=== PATIENT | female | born 2000 ===

== ENCOUNTER 2021-03-13 23:54 | Emergency (ER) | payer OTHER ==
[2021-03-14 00:36] LABS: Urine Blood Negative (Negative); Urine Glucose Negative (Negative); Urine Protein Negative (Negative); Urine Specific Gravity 1.025 (1.005-1.030)
[2021-03-14] MEDS ORDERED: METOCLOPRAMIDE 10 MG/2mL INJ ONE (01:13)
[2021-03-14] MEDS ORDERED: DIPHENHYDRAMINE 50 MG/ML VIAL ONE (01:14)
[2021-03-14] MEDS ORDERED: NA CHLORIDE 0.9% 1,000 ML ONE (01:14)
--- NOTE | 2021-03-14 01:50 | EDPHYS ---
Physician Documentation [facility] Name: Ana Luna Age: 20 yrs Sex: Female : 2000 Arrival Date: 03/14/2021 Time: 00:00 Bed 6 Private MD: ED Physician Boby Sequeira HPI: 03/14 01:20 This 20 yrs old Female presents to ER via Ambulatory with complaints of Headache > jr8 24hrs Old, Nausea/Vomiting. 01:20 Severity of symptoms: At its worst the pain was moderate, in the emergency department jr8 the pain is unchanged. Headache History: Denies prior headaches. The symptoms are alleviated by nothing. the symptoms are aggravated by nothing. The patient has not experienced similar symptoms in the past. The patient has not recently seen a physician. This is a 20-year-old female patient that presented to the emergency room with complaints of headache and nausea for the past couple of days. Patient has had no relief with [id number] medicine. Denies any other symptoms at this time.. 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 - Social history:: Smoking status: Patient denies any tobacco usage or history of. ROS: 01:20 Eyes: Negative for injury, pain, redness, and discharge, ENT: Negative for injury, jr8 pain, and discharge, Neck: Negative for injury, pain, and swelling, Cardiovascular: Negative for chest pain, palpitations, and edema, Respiratory: Negative for shortness of breath, cough, wheezing, and pleuritic chest pain, Back: Negative for injury and pain, MS/Extremity: Negative for injury and deformity, Skin: Negative for injury, rash, and discoloration. 01:20 Abdomen/GI: Positive for nausea and vomiting, Negative for abdominal pain, diarrhea. 01:20 Neuro: Positive for headache. Exam: 01:20 Constitutional: This is a well developed, well nourished patient who is awake, alert, jr8 and in no acute distress. Eyes: Pupils equal round and reactive to light, extra-ocular motions intact. Lids and lashes normal. Conjunctiva and sclera are non-icteric and not injected. Cornea within normal limits. Periorbital areas with no swelling, redness, or edema. ENT: Nares patent. No nasal discharge, no septal abnormalities noted. Tympanic membranes are normal and external auditory canals are clear. Oropharynx with no redness, swelling, or masses, exudates, or evidence of obstruction, uvula midline. Mucous membranes moist. Neck: Trachea midline, no thyromegaly or masses palpated, and no cervical lymphadenopathy. Supple, full range of motion without nuchal rigidity, or vertebral point tenderness. No Meningismus. Respiratory: Lungs have equal breath sounds bilaterally, clear to auscultation and percussion. No rales, rhonchi or wheezes noted. No increased work of breathing, no retractions or nasal flaring. Abdomen/GI: Soft, non-tender, with normal bowel sounds. No distension or tympany. No guarding or rebound. No evidence of tenderness throughout. Back: No spinal tenderness. No costovertebral tenderness. Full range of motion. Skin: Warm, dry with normal turgor. Normal color with no rashes, no lesions, and no evidence of cellulitis. MS/ Extremity: Pulses equal, no cyanosis. Neurovascular intact. Full, normal range of motion. Neuro: Awake and alert, GCS 15, oriented to person, place, time, and situation. Cranial nerves II-XII grossly intact. Motor strength 5/5 in all extremities. Sensory grossly intact. Cerebellar exam normal. Normal gait. 01:20 Cardiovascular: Rate: tachycardic, Rhythm: regular, Pulses: Pulses are 2+ in right radial artery and left radial artery. Heart sounds: normal, normal S1and S2, no S3 or S4, no murmur, no rub, no gallop, Edema: is not appreciated. Vital Signs: 00:39 BP 151 / 103; Pulse 121; Resp 20; Temp 99.5; Pulse Ox 100% on R/A; Weight 69.85 kg; tw5 Height 5 ft. 8 in. (172.72 cm); Pain 10/10; 00:46 BP 151 / 89; Pulse 119; Resp 20; Pulse Ox 98% on R/A; tw5 01:21 BP 142 / 100; Pulse 113; Resp 20; Pulse Ox 98% on R/A; tw5 00:39 Body Mass Index 23.42 (69.85 kg, 172.72 cm) tw5 MDM: 00:24 Patient medically screened. jr8 01:49 Data reviewed: vital signs, nurses notes, and as a result, I will discharge patient. jr8 Data interpreted: Pulse oximetry: on room air is 98 %. Interpretation: normal. Counseling: I had a detailed discussion with the patient and/or guardian regarding: the historical points, exam findings, and any diagnostic results supporting the discharge/admit diagnosis, the need for outpatient follow up, a family practitioner, to return to the emergency department if symptoms worsen or persist or if there are any questions or concerns that arise at home. Response to treatment: the patient's symptoms have mildly improved after treatment. 01:49 ED course: And has had mild improvement. Heart rate has started to decrease since jr8 fluids have been administered. Patient needs to leave because she has to get to work by 3 AM. I advised her that I could give her a work note that we can continue to monitor her but she insists on leaving. We will discharge her at this time but knows she can come back at any point time for further evaluation.. 03/14 00:36 Order name: Urine Dipstick-Ancillary; Complete Time: 00:40 EDMS 03/14 00:37 Order name: Urine Dipstick-Ancillary EDMS 03/14 00:40 Order name: IV; Complete Time: 00:45 jr8 Administered Medications: 01:18 Drug: Reglan (metoCLOPramide) 10 mg Route: IVP; Site: right antecubital; tw 01:59 Follow up: Response: No adverse reaction tw 01:18 Drug: NS 0.9% 1000 ml Route: IV; Rate: 1000 ml; Site: right antecubital; :59 Follow up: IV Status: Order to discontinue infusion tw 01:20 Not Given (Patient Refused; " I was forced to take this as a kid, I dont want to take tw5 that"): Benadryl (diphenhydrAMINE) 25 mg IVP once Disposition: 03:49 Co-signature as Attending Physician, Boby Sequeira MD I agree with the assessment and kdr plan of care. Disposition Summary: 03/14/21 01:50 Discharge Ordered Location: Home jr8 Problem: new jr8 Symptoms: have improved jr8 Condition: Stable jr8 Diagnosis - Migraine without aura, intractable jr8 Followup: jr8 - With: Private Physician - When: 2 - 3 days - Reason: Recheck today's complaints, Continuance of care, Re-evaluation by your physician Discharge Instructions: - Discharge Summary Sheet jr8 - Migraine Headache jr8 Forms: - Medication Reconciliation Form jr8 - Thank You Letter jr8 - Antibiotic Education jr8 - Prescription Opioid Use jr8 Signatures: Dispatcher [employer] EDMS Boby Sequeira MD MD [facility] Dylon Mancera PA PA jr8 Gloria Lim tw
--- NOTE | 2021-03-14 01:50 | ER ---
Nurse's Notes [facility] Name: Ana Luna Age: 20 yrs Sex: Female : 2000 Arrival Date: 03/14/2021 Time: 00:00 Bed 6 Private MD: Diagnosis: Migraine without aura, intractable Presentation: 03/14 00:36 Chief complaint: Patient states: Headache on the left side of the head. tw 00:36 Method Of Arrival: Ambulatory tw5 00:39 Coronavirus screen: Vaccine status: Patient reports receiving the 2nd dose of the covid tw5 vaccine. Date April 2020. Ebola Screen: Patient negative for fever greater than or equal to 101.5 degrees Fahrenheit, and additional compatible Ebola Virus Disease symptoms Patient denies exposure to infectious person. Patient denies travel to an Ebola-affected area in the 21 days before illness onset. Initial Sepsis Screen: Does the patient meet any 2 criteria? HR > 90 bpm. Does the patient have a suspected source of infection? No. Patient's initial sepsis screen is negative. Risk Assessment: Do you want to hurt yourself or someone else? Patient reports no desire to harm self or others. Onset of symptoms was March 08, 2021. 00:39 Acuity: REID 3 tw5 Triage Assessment: 00:45 Headache History: Denies prior headaches. General: Appears in no apparent distress. tw5 obese, Behavior is calm, cooperative, appropriate for age. Pain: Pain currently is 10 out of 10 on a pain scale. Pain began 6 days ago. Pain: Also complains of nausea, inability to concentrate. Neuro: Level of Consciousness is awake, alert, obeys commands, Oriented to person, place, time, situation. 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 - Social history:: Smoking status: Patient denies any tobacco usage or history of. Screenin:46 Abuse screen: Denies threats or abuse. Denies injuries from another. Nutritional tw5 screening: No deficits noted. Tuberculosis screening: No symptoms or risk factors identified. Never had TB. Fall Risk No fall in past 12 months (0 pts). Assessment: 00:37 : Urine is clear. tw5 00:46 General: Appears in no apparent distress. Behavior is calm, cooperative, appropriate tw5 for age. Pain: Pain currently is 10 out of 10 on a pain scale. Cardiovascular: Rhythm is sinus tachycardia. Respiratory: Reports Vital Signs: 00:39 BP 151 / 103; Pulse 121; Resp 20; Temp 99.5; Pulse Ox 100% on R/A; Weight 69.85 kg; tw5 Height 5 ft. 8 in. (172.72 cm); Pain 10/10; 00:46 BP 151 / 89; Pulse 119; Resp 20; Pulse Ox 98% on R/A; tw5 01:21 BP 142 / 100; Pulse 113; Resp 20; Pulse Ox 98% on R/A; tw5 00:39 Body Mass Index 23.42 (69.85 kg, 172.72 cm) tw5 ED Course: 00:00 Patient arrived in ED. wm 00:23 Dylon Mancera PA is PHCP. jr8 00:23 Boby Sequeira MD is Attending Physician. jr8 00:24 Karrie Miller is Primary Nurse. df1 00:37 Patient has correct armband on for positive identification. Placed in gown. Bed in low tw5 position. Call light in reach. Side rails up X 1. monitoring engineer on. Pulse ox on. NIBP on. Door closed. Noise minimized. Moved to private room. Warm blanket given. Verbal reassurance given. 00:37 Initial lab(s) drawn, by me, sent to lab. Urine collected: clean catch specimen, EKG tw5 done, by ED staff, reviewed by Dylon COLON. Inserted saline lock: 18 gauge in right antecubital area, using aseptic technique. Blood collected. 00:38 Urine Dipstick-Ancillary Sent. df1 00:42 Triage completed. tw5 00:45 Arm band placed on right wrist. EKG completed in triage. Results shown to MD. tw5 00:46 No apparent distress. tw5 01:59 No provider procedures requiring assistance completed. IV discontinued, intact, tw5 bleeding controlled, No redness/swelling at site. Pressure dressing applied. Administered Medications: 01:18 Drug: Reglan (metoCLOPramide) 10 mg Route: IVP; Site: right antecubital; :59 Follow up: Response: No adverse reaction :18 Drug: NS 0.9% 1000 ml Route: IV; Rate: 1000 ml; Site: right antecubital; :59 Follow up: IV Status: Order to discontinue infusion 01:20 Not Given (Patient Refused; " I was forced to take this as a kid, I dont want to take tw5 that"): Benadryl (diphenhydrAMINE) 25 mg IVP once Outcome: 01:50 Discharge ordered by MD. escalante :59 Discharged to home :59 Condition: good :59 Discharge instructions given to patient, Instructed on discharge instructions, follow up and referral plans. 02:00 Patient left the ED. 5 Signatures: Dylon Mancera PA PA jr8 Emilie Rios Dawn df1 Gloria Lim tw5
[2021-03-14 02:21] VITALS: TEMP 99.5
[2021-03-14 02:22] VITALS: O2SAT 98
[2021-03-14 02:24] VITALS: BP 142/100
== END 2021-03-14 02:00 | disposition home or self-care (01) ==
LOC: ER 23:54
DX: G43.019 Migraine without aura, intractable, without status migrainosus (principal)
CPT/HCPCS: 96361; 93005; 81003; 96374; 99284; J2765; J1200; J7030

== ENCOUNTER 2022-04-07 18:15 | Emergency (ER) | payer OTHER ==
--- OUTSIDE RECORDS SUMMARY | 2022-04-07 18:18 | XMS REPORT | Continuity of Care Document ---
:2000 Author Organization [facility] t Address [address] [place] [address] Care Team Providers Name Role Phone Sary Campo MD Primary Care Physician [phone] SARY CAMPO Attending Clinician Unavailable Sary Campo MD Attending Clinician Doctor Unassigned, [place] Attending Clinician Unavailable Payers Payer Name Policy Type Policy Number Effective Date Expiration Date S ource Problems Condition Condition Condition Status Onset Resolution Last Treating Co mments Source Name Details Category Date Date Treatment Clinician Date Gender Gender Disease Active 2021-04 Univers incongruen incongruen 2-06 it y of ce ce 00:00: [place] 00 Medical Branch Encounter Encounter Disease Active 2021-04 Uni vers for for 2-06 [place] 00 Med[place] rachael use of use of Branch high-risk high-risk medication medication BMI BMI Disease Active 2021-04 Univers 40.0-44.9, 40.0-44.9, 2-06 it y of adult adult 00:00: [place] 00 Medical Branch Primary Primary Disease Active 2021-04 Univers hypertensi hypertensi 2-06 it y of on on 00:00: [place] 00 Medical Branch Anxiety Anxiety Disease Active 2021-04 Univers 2-06 ity of 00:00: [place] 00 Medical Branch 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 (finding) Branch Sex Assigned At [birth year] Universit y of 00:00:00 00:00:00 [place] [facility] Smoking Status Start Date Stop Date Source [facility] Medications Ordered Filled Start Stop Current Ordering Indication Dosage Frequency Signature Comments Components Source Medication Medication Date Date Medication? Clinician (SIG) Name Name estradioL 2 2021-04 Yes [id number] 2mg Take 1 Univers mg tablet 2-15 tablet by ity o f 00:00: mouth in [place] 00 the Medical morning. Branch estradioL 2021-04 Yes 2{patch Apply 2 Un joseline 0.075 mg/24 2-14 } Patches to it y of hr patch 00:00: skin [place] 00 weekly. Medical Branch estradioL 2021-04- 2{patch Apply 2 U nivers 0.075 mg/24 2-14 12-15 } Patches to i ty of hr patch 00:00: 00:00 skin [place] 00 :00 weekly. Medical Branch estradioL 2021-04 Yes [id number] 2{patch Apply 2 Univers 0.075 mg/24 2-08 } Patches to it y of hr patch 00:00: skin 2 [place] (two) Medical times per Branch week. estradioL 2021-04 Yes [id number] 2{patch Apply 2 Univers 0.075 mg/24 2-08 } Patches to it y of hr patch 00:00: skin 2 [place] 00 (two) Medical times per Branch week. estradioL 2021-04 Yes [id number] 2{patch Apply 2 Univers 0.075 mg/24 2-08 } Patches to it y of hr patch 00:00: skin 2 [place] 00 (two) Medical times per Branch week. estradioL 2021-04 Yes [id number] 2{patch Apply 2 Univers 0.075 mg/24 2-08 } Patches to it y of hr patch 00:00: skin 2 [place] 00 (two) Medical times per Branch week. estradioL 2021- Yes [id number] 2{patch Apply 2 Univers 0.075 mg/24 2-08 } Patches to it y of hr patch 00:00: skin 2 [place] 00 (two) Medical times per Branch week. estradioL 2021- Yes [id number] 2{patch Apply 2 Univers 0.075 mg/24 2-08 } Patches to it y of hr patch 00:00: skin 2 [place] 00 (two) Medical times per Branch week. estradioL 2021- Yes [id number] 2{patch Apply 2 Univers 0.075 mg/24 2-08 } Patches to it y of hr patch 00:00: skin 2 [place] 00 (two) Medical times per Branch week. estradioL 2021- Yes [id number] 2{patch Apply 2 Univers 0.075 mg/24 2-08 } Patches to it y of hr patch 00:00: skin 2 [place] 00 (two) Medical times per Branch week. estradioL 2021- Yes [id number] 2{patch Apply 2 Univers 0.075 mg/24 2-08 } Patches to it y of hr patch 00:00: skin 2 [place] 00 (two) Medical times per Branch week. estradioL 2021-2021- No [id number] 2{patch Apply 2 Univers 0.075 mg/24 2-08 12-14 } Patches to i ty of hr patch 00:00: 00:00 skin 2 [place] 00 :00 (two) Medical times per Branch week. spironolact 2021-2021- No 100mg Take 100 Univers one 100 mg 05-26-06 mg by ity of tablet 08:17: 00:00 mouth in [place] 27 :00 the Medical morning. Branch hydrOXYzine 2021-2021- No 10mg Take 10 mg Univers 10 mg 05-26- by mouth ity of tablet 08:17: 00:00 in the [place] 27 :00 morning Medical and 10 mg Branch in the evening. spironolact 2021-2021- No 100mg Take 100 Univers one 100 mg 05-26-06 mg by ity of tablet 08:17: 00:00 mouth in [place] 27 :00 the Medical morning. Branch hydrOXYzine 2021-2021- No 10mg Take 10 mg Univers 10 mg 05-26- by mouth ity of tablet 08:17: 00:00 in the [place] 27 :00 morning Medical and 10 mg Branch in the evening. spironolact 2021-2021- No 100mg Take 100 Univers one 100 mg 2-06 mg by ity of tablet 08:17: 00:00 mouth in [place] 27 :00 the Medical morning. Branch hydrOXYzine 2021-04- No 10mg Take 10 mg Univers 10 mg 05-26-06 by mouth ity of tablet 08:17: 00:00 in the [place] 27 :00 morning Medical and 10 mg Branch in the evening. spironolact 2021-04- No 100mg Take 100 Univers one 100 mg 05-26-06 mg by ity of tablet 08:17: 00:00 mouth in [place] 27 :00 the Medical morning. Branch hydrOXYzine 2021-04- No 10mg Take 10 mg Univers 10 mg 05-26-06 by mouth ity of tablet 08:17: 00:00 in the [place] 27 :00 morning Medical and 10 mg Branch in the evening. estradioL 2021-04- No 2mg Take 2 mg Un joseline (ESTRACE) 2 05-26- by mouth ity of mg tablet 08:17: 00:00 in the [place] 24 :00 morning Medical and 2 mg Branch in the evening. estradioL 2021-04- No 2mg Take 2 mg Un joseline (ESTRACE) 2 05-26- by mouth ity of mg tablet 08:17: 00:00 in the [place] 24 :00 morning Medical and 2 mg Branch in the evening. estradioL 2021-04- No 2mg Take 2 mg Un joseline (ESTRACE) 2 05-26- by mouth ity of mg tablet 08:17: 00:00 in the [place] 24 :00 morning Medical and 2 mg Branch in the evening. estradioL 2021-2021- No 2mg Take 2 mg Un joseline (ESTRACE) 2 05-26- by mouth ity of mg tablet 08:17: 00:00 in the [place] 24 :00 morning Medical and 2 mg Branch in the evening. PROGESTERON 2021-04- No 200mg 200 mg Un joseline E MISC 05-26-06 daily. ity of 08:09: 00:00 [place] 33 :00 Medical Branch PROGESTERON 2021-04- No 200mg 200 mg Un joseline E MISC 2-06 12-06 daily. ity of 08:09: 00:00 [place] 33 :00 Medical Branch PROGESTERON 2021-2021- No 200mg 200 mg Un joseline E MISC 2-06 12-06 daily. ity of 08:09: 00:00 [place] 33 :00 Medical Branch PROGESTERON 2021-04- No 200mg 200 mg Un joseline E MISC 2-06 12-06 daily. ity of 08:09: 00:00 [place] 33 :00 Medical Branch hydrOXYzine 2021-04 Yes [id number] 10mg Take 1 Univers 10 mg 2-06 tablet by ity of tablet 00:00: mouth at [place] 00 bedtime. Medical Branch progesteron 2021-04 Yes [id number] 100mg Take 1 Univers e 100 mg 2-06 capsule by ity o f capsule 00:00: mouth in [place] 00 the Medical morning. Branch spironolact 2021-04 Yes [id number] 100mg Take 1 Univers one 100 mg 2-06 tablet by ity of tablet 00:00: mouth in [place] 00 the Medical morning. Branch hydrOXYzine 2021-04 Yes [id number] 10mg Take 1 Univers 10 mg 2-06 tablet by ity of tablet 00:00: mouth at [place] [address] bedtime. Medical Branch progesteron 2021-04 Yes [id number] 100mg Take 1 Univers e 100 mg 2-06 capsule by ity o f capsule 00:00: mouth in [place] 00 the Medical morning. Branch spironolact 2021- Yes [id number] 100mg Take 1 Univers one 100 mg 2-06 tablet by ity of tablet 00:00: mouth in [place] 00 the Medical morning. Branch hydrOXYzine 2021- Yes [id number] 10mg Take 1 Univers 10 mg 2-06 tablet by ity of tablet 00:00: mouth at [place] 00 bedtime. Medical Branch progesteron 2021-04 Yes [id number] 100mg Take 1 Univers e 100 mg 2-06 capsule by ity o f capsule 00:00: mouth in [place] 00 the Medical morning. Branch spironolact 2021- Yes [id number] 100mg Take 1 Univers one 100 mg 2-06 tablet by ity of tablet 00:00: mouth in [place] 00 the Medical morning. Branch hydrOXYzine 2021- Yes [id number] 10mg Take 1 Univers 10 mg 2-06 tablet by ity of tablet 00:00: mouth at [place] [address] bedtime. Medical Branch progesteron 2021- Yes [id number] 100mg Take 1 Univers e 100 mg 2-06 capsule by ity o f capsule 00:00: mouth in [place] 00 the Medical morning. Branch spironolact 2021- Yes [id number] 100mg Take 1 Univers one 100 mg 2-06 tablet by ity of tablet 00:00: mouth in [place] 00 the Medical morning. Branch hydrOXYzine 2021- Yes [id number] 10mg Take 1 Univers 10 mg 2-06 tablet by ity of tablet 00:00: mouth at [place] [address] bedtime. Medical Branch progesteron 2021- Yes [id number] 100mg Take 1 Univers e 100 mg 2-06 capsule by ity o f capsule 00:00: mouth in [place] 00 the Medical morning. Branch spironolact 2021- Yes [id number] 100mg Take 1 Univers one 100 mg 2-06 tablet by ity of tablet 00:00: mouth in [place] 00 the Medical morning. Branch hydrOXYzine 2021- Yes [id number] 10mg Take 1 Univers 10 mg 2-06 tablet by ity of tablet 00:00: mouth at [place] [address] bedtime. Medical Branch progesteron 2021- Yes [id number] 100mg Take 1 Univers e 100 mg 2-06 capsule by ity o f capsule 00:00: mouth in [place] 00 the Medical morning. Branch spironolact 2021- Yes [id number] 100mg Take 1 Univers one 100 mg 2-06 tablet by ity of tablet 00:00: mouth in [place] 00 the Medical morning. Branch hydrOXYzine 2021- Yes [id number] 10mg Take 1 Univers 10 mg 2-06 tablet by ity of tablet 00:00: mouth at [place] 00 bedtime. Medical Branch progesteron 2021- Yes [id number] 100mg Take 1 Univers e 100 mg 2-06 capsule by ity o f capsule 00:00: mouth in [place] 00 the Medical morning. Branch spironolact 2021- Yes [id number] 100mg Take 1 Univers one 100 mg 2-06 tablet by ity of tablet 00:00: mouth in [place] 00 the Medical morning. Branch hydrOXYzine 2021- Yes [id number] 10mg Take 1 Univers 10 mg 2-06 tablet by ity of tablet 00:00: mouth at [place] 00 bedtime. Medical Branch progesteron 2021- Yes [id number] 100mg Take 1 Univers e 100 mg 2-06 capsule by ity o f capsule 00:00: mouth in [place] 00 the Medical morning. Branch spironolact 2021-04 Yes [id number] 100mg Take 1 Univers one 100 mg 2-06 tablet by ity of tablet 00:00: mouth in [place] 00 the Medical morning. Branch hydrOXYzine 2021- Yes [id number] 10mg Take 1 Univers 10 mg 2-06 tablet by ity of tablet 00:00: mouth at [place] 00 bedtime. Medical Branch progesteron 2021- Yes [id number] 100mg Take 1 Univers e 100 mg 2-06 capsule by ity o f capsule 00:00: mouth in [place] 00 the Medical morning. Branch spironolact 2021- Yes [id number] 100mg Take 1 Univers one 100 mg 2-06 tablet by ity of tablet 00:00: mouth in [place] 00 the Medical morning. Branch hydrOXYzine 2021- Yes [id number] 10mg Take 1 Univers 10 mg 2-06 tablet by ity of tablet 00:00: mouth at [place] [address] bedtime. Medical Branch progesteron 2021- Yes [id number] 100mg Take 1 Univers e 100 mg 2-06 capsule by ity o f capsule 00:00: mouth in [place] 00 the Medical morning. Branch spironolact 2021- Yes [id number] 100mg Take 1 Univers one 100 mg 2-06 tablet by ity of tablet 00:00: mouth in [place] 00 the Medical morning. Branch hydrOXYzine 2021- Yes [id number] 10mg Take 1 Univers 10 mg 2-06 tablet by ity of tablet 00:00: mouth at [place] 00 bedtime. Medical Branch progesteron 2021- Yes [id number] 100mg Take 1 Univers e 100 mg 2-06 capsule by ity o f capsule 00:00: mouth in [place] 00 the Medical morning. Branch spironolact 2021- Yes [id number] 100mg Take 1 Univers one 100 mg 2-06 tablet by ity of tablet 00:00: mouth in [place] 00 the Medical morning. Branch Immunizations Ordered Filled Immunization Date Status Comments [facility] Immunization Name Name Influenza Virus 2022-03-25 Completed Universit y of Vaccine Quad IM, 00:00:00 [facility] dical Preserv and ABX Branch Free 6 MO-64 YRS HPV9 2022-03-25 Completed University of 00:00:00 [facility] SARS-COV-2 COVID-19 2022-03-25 Completed Unive rsity of VACCINE 12 YRS+, 00:00:00 [facility] dical BIVALENT 0.5ML, IM, Branc h (MODERNA BOOSTER) Influenza Virus 2022-03-25 Completed Universit y of Vaccine Quad IM, 00:00:00 [facility] dical Preserv and ABX Branch Free 6 MO-64 YRS HPV9 2022-03-25 Completed University of 00:00:00 [facility] SARS-COV-2 COVID-19 2022-03-25 Completed Unive rsity of VACCINE 12 YRS+, 00:00:00 [facility] dical BIVALENT 0.5ML, IM, Branc h (MODERNA BOOSTER) Influenza Virus 2022-03-25 Completed Universit y of Vaccine Quad IM, 00:00:00 [facility] dical Preserv and ABX Branch Free 6 MO-64 YRS HPV9 2022-03-25 Completed University of 00:00:00 [facility] SARS-COV-2 COVID-19 2022-03-25 Completed Unive rsity of VACCINE 12 YRS+, 00:00:00 [facility] dical BIVALENT 0.5ML, IM, Branc h (MODERNA BOOSTER) Influenza Virus 2022-03-25 Completed Universit y of Vaccine Quad IM, 00:00:00 [facility] dical Preserv and ABX Branch Free 6 MO-64 YRS HPV9 2022-03-25 Completed University of 00:00:00 [facility] SARS-COV-2 COVID-19 2022-03-25 Completed Unive rsity of VACCINE 12 YRS+, 00:00:00 [facility] dical BIVALENT 0.5ML, IM, Branc h (MODERNA BOOSTER) Influenza Virus 2022-03-25 Completed Universit y of Vaccine Quad IM, 00:00:00 [facility] dical Preserv and ABX Branch Free 6 MO-64 YRS HPV9 2022-03-25 Completed University of 00:00:00 [facility] SARS-COV-2 COVID-19 2022-03-25 Completed Unive rsity of VACCINE 12 YRS+, 00:00:00 [place] Me dical BIVALENT 0.5ML, IM, Branc h (MODERNA BOOSTER) Influenza Virus 2022-03-25 Completed Universit y of Vaccine Quad IM, 00:00:00 [place] Me dical Preserv and ABX Branch Free 6 MO-64 YRS HPV9 2022-03-25 Completed University of 00:00:00 [facility] SARS-COV-2 COVID-19 2022-03-25 Completed Unive rsity of VACCINE 12 YRS+, 00:00:00 [place] Me dical BIVALENT 0.5ML, IM, Branc h (MODERNA BOOSTER) Influenza Virus 2022-03-25 Completed Universit y of Vaccine Quad IM, 00:00:00 [place] Me dical Preserv and ABX Branch Free 6 MO-64 YRS HPV9 2022-03-25 Completed University of 00:00:00 [facility] SARS-COV-2 COVID-19 2022-03-25 Completed Unive rsity of VACCINE 12 YRS+, 00:00:00 [place] Me dical BIVALENT 0.5ML, IM, Branc h (MODERNA BOOSTER) Influenza Virus 2022-03-25 Completed Universit y of Vaccine Quad IM, 00:00:00 [place] Me dical Preserv and ABX Branch Free 6 MO-64 YRS HPV9 2022-03-25 Completed University of 00:00:00 [facility] SARS-COV-2 COVID-19 2022-03-25 Completed Unive rsity of VACCINE 12 YRS+, 00:00:00 [place] Me dical BIVALENT 0.5ML, IM, Branc h (MODERNA BOOSTER) Influenza Virus 2022-03-25 Completed Universit y of Vaccine Quad IM, 00:00:00 [place] Me dical Preserv and ABX Branch Free 6 MO-64 YRS HPV9 2022-03-25 Completed University of 00:00:00 [facility] SARS-COV-2 COVID-19 2022-03-25 Completed Unive rsity of VACCINE 12 YRS+, 00:00:00 [place] Me dical BIVALENT 0.5ML, IM, Branc h (MODERNA BOOSTER) Influenza Virus 2022-03-25 Completed Universit y of Vaccine Quad IM, 00:00:00 [place] Me dical Preserv and ABX Branch Free 6 MO-64 YRS HPV9 2022-03-25 Completed University of 00:00:00 [place] [facility] SARS-COV-2 COVID-19 2022-03-25 Completed Unive rsity of VACCINE 12 YRS+, 00:00:00 [place] Me dical BIVALENT 0.5ML, IM, Branc h (MODERNA BOOSTER) Influenza Virus 2022-03-25 Completed Universit y of Vaccine Quad IM, 00:00:00 [place] Me dical Preserv and ABX Branch Free 6 MO-64 YRS HPV9 2022-03-25 Completed University of 00:00:00 [facility] SARS-COV-2 COVID-19 2022-03-25 Completed Unive rsity of VACCINE 12 YRS+, 00:00:00 [place] Me dical BIVALENT 0.5ML, IM, Branc h (MODERNA BOOSTER) SARS-COV-2 COVID-19 2020-10-05 Completed Unive rsity of MODERNA 0.25ML 00:00:00 [place] Medi rachael BOOSTER VACCINE Branch SARS-COV-2 COVID-19 2020-10-05 Completed Unive rsity of MODERNA 0.25ML 00:00:00 [place] Medi rachael BOOSTER VACCINE Branch SARS-COV-2 COVID-19 2020-10-05 Completed Unive rsity of MODERNA 0.25ML 00:00:00 [place] Medi rachael BOOSTER VACCINE Branch SARS-COV-2 COVID-19 2020-10-05 Completed Unive rsity of MODERNA 0.25ML 00:00:00 [place] Medi rachael BOOSTER VACCINE Branch SARS-COV-2 COVID-19 2020-10-05 Completed Unive rsity of MODERNA 0.25ML 00:00:00 [place] Medi rachael BOOSTER VACCINE Branch SARS-COV-2 COVID-19 2020-10-05 Completed Unive rsity of MODERNA 0.25ML 00:00:00 [place] Medi rachael BOOSTER VACCINE Branch SARS-COV-2 COVID-19 2020-10-05 Completed Unive rsity of MODERNA 0.25ML 00:00:00 [place] Medi rachael BOOSTER VACCINE Branch SARS-COV-2 COVID-19 2020-10-05 Completed Unive rsity of MODERNA 0.25ML 00:00:00 [place] Medi rachael BOOSTER VACCINE Branch SARS-COV-2 COVID-19 2020-10-05 Completed Unive rsity of MODERNA 0.25ML 00:00:00 [place] Medi rachael BOOSTER VACCINE Branch SARS-COV-2 COVID-19 2020-10-05 Completed Unive rsity of MODERNA 0.25ML 00:00:00 [place] Medi rachael BOOSTER VACCINE Branch SARS-COV-2 COVID-19 2020-10-05 Completed Unive rsity of MODERNA 0.25ML 00:00:00 [place] Medi rachael BOOSTER VACCINE Branch SARS-COV-2 COVID-19 2020-08-31 Completed Unive rsity of MODERNA 0.25ML 00:00:00 [place] Medi rachael BOOSTER VACCINE Branch SARS-COV-2 COVID-19 2020-08-31 Completed Unive rsity of MODERNA 0.25ML 00:00:00 [place] Medi rachael BOOSTER VACCINE Branch SARS-COV-2 COVID-19 2020-08-31 Completed Unive rsity of MODERNA 0.25ML 00:00:00 [place] Medi rachael BOOSTER VACCINE Branch SARS-COV-2 COVID-19 2020-08-31 Completed Unive rsity of MODERNA 0.25ML 00:00:00 [place] Medi rachael BOOSTER VACCINE Branch SARS-COV-2 COVID-19 2020-08-31 Completed Unive rsity of MODERNA 0.25ML 00:00:00 [place] Medi rachael BOOSTER VACCINE Branch SARS-COV-2 COVID-19 2020-08-31 Completed Unive rsity of MODERNA 0.25ML 00:00:00 [place] Medi rachael BOOSTER VACCINE Branch SARS-COV-2 COVID-19 2020-08-31 Completed Unive rsity of MODERNA 0.25ML 00:00:00 [place] Medi rachael BOOSTER VACCINE Branch SARS-COV-2 COVID-19 2020-08-31 Completed Unive rsity of MODERNA 0.25ML 00:00:00 [place] Medi rahcael BOOSTER VACCINE Branch SARS-COV-2 COVID-19 2020-08-31 Completed Unive rsity of MODERNA 0.25ML 00:00:00 [place] Medi rachael BOOSTER VACCINE Branch SARS-COV-2 COVID-19 2020-08-31 Completed Unive rsity of MODERNA 0.25ML 00:00:00 [place] Medi rachael BOOSTER VACCINE Branch SARS-COV-2 COVID-19 2020-08-31 Completed Unive rsity of MODERNA 0.25ML 00:00:00 [facility] BOOSTER VACCINE Branch Vital Signs Vital Name Observation Time Observation Value Comments Source Systolic blood 2022-03-25 13:47:00 110 mm[Hg] Univer sity of pressure [facility] Diastolic blood 2022-03-25 13:47:00 70 mm[Hg] Unive rsity of pressure [facility] Heart rate 2022-03-25 13:47:00 117 /min [facility] Body temperature 2022-03-25 13:47:00 36.78 [facility] Respiratory rate 2022-03-25 13:47:00 [facility] height 2022-03-25 13:47:00 170.2 cm [facility] Body weight 2022-03-25 13:47:00 122.925 kg [facility] BMI 2022-03-25 13:47:00 42.44 kg/m2 [facility] Oxygen saturation in 2022-03-25 13:47:00 99 /min [facility] Arterial blood by [facility] Pulse oximetry Branch Procedures Procedure Date / Time Performed Performing Clinician [facility] SARS-COV-2 COVID-19 2022-03-25 14:35:12 Sary Campo [facility] VACCINE 12 YRS+, Medical Branch BIVALENT 0.5ML, IM (MODERNA BOOSTER) GARDASIL 9 (HPV 9V) 2022-03-25 14:17:23 Sary Campo [facility] Medical Branch FLU VACC ([id number]), 2022-03-25 13:52:16 Sary Campo [facility] 6 MO-64 YRS, .5ML, IM, Medical B ranch QUAD (FLUCELVAX) ASSIGNMENT OF BENEFITS 2022-03-25 13:16:58 Doctor Unassigned, No [facility] Branch Encounters Start End Encounter Admission Attending Care Care Encounter Source Date/Time Date/Time Type Type Clinicians Facility Department ID 2022-04-03 2022-04-03 Patient OLU CampoMB [id number] Univers 00:00:00 00:00:00 Secure Msg Sary BENITES [id number] [place] MEDIC[place] [id number] [place] as CLINIC - [phone] [address] 2022-04-02 2022-04-02 [facility] [id number] Univers 00:00:00 00:00:00 Sary BENITES [id number] it y of [place] MEDICINE [id number] [place] CLINIC - [phone] [address] 2022-03-28 2022-03-28 [facility] [id number] Univers 00:00:00 00:00:00 Secure Msg Sary PRIMARY [id number] [place] [id number] [id number] [address] 2022-03-26 2022-03-26 [facility] [id number] Univers 00:00:00 00:00:00 Sary BENITES [id number] it y of [place] MEDIC[place] [id number] [place] as CLINIC - [id number] [address] 2022-03-26 2022-03-26 [facility] [id number] Univers 00:00:00 00:00:00 Sary BENITES [id number] it y [place] MED[place] [id number] [place] as CLINIC - [phone] [address] 2022-03-25 2022-03-25 Outpatient R ALBER [facility] [id number] Univers 08:00:00 10:31:08 SARY cifuentes [facility] 2022-03-25 2022-03-25 [facility] [id number] Univers 08:00:00 10:31:08 Visit Sary BENITES [id number] it y of [facility] [id number] [place] as CLINIC - [phone] [address] 2022-03-25 2022-03-25 Orders Doctor STEVE [id number] 00:00:00 00:00:00 Only Unassigned, [place] [id number] ity of [place] [facility] [id number] Cristiano as [phone] [place] [address] Branch 2022-03-03 2022-03-03 Outpatient [facility] [id number] Alfredo 11:40:48 11:40:48 [id number] F Aakash 2022-02-12 2022-02-12 Outpatient [facility] [id number] Alfredo 09:37:36 09:37:36 F Aakash Results Test Description Test Time Test Comments Results Result Comments Source ESTRADIOL 2021-04-04 05:18:52 Test Item Value Reference Range Interpretation Comme nts ESTRADIOL (test code = 45.9 PG/ML SEE BELOW EXPECTED VALUES FOR ESTRADIOL 2505) FOR FEMALES >=1 8 YEARS FOLLICULAR . . . . . . . . . . . . . PG/ML 12.4-233. 0 OVULATION. . . . . . . . . . . . . . PG/ML 41.0-398.0 LUTEAL PHASE . . . . . . . . . . . . PG/ML 22.3-341. 0 POSTMENOPAUSAL SUPPLEMENTED/NO N-SUPP . PG/ML <138.0/<20.0 NO TE: TO DETERMINE NORMAL VS. SUBNORMAL E STRADIOL IN POSTMENOPAUSAL FEMALES, CONSIDER ULTRASENSITIVE ESTRADIOL ([facility] ORDER CODE 5678). MET HODOLOGY IS MERRITT CHEPE ELECTROCHEMILUM INESCENT IMMUNOASSAY WITH A LIMIT OF DETECTION OF 17 PG/ML. [id number] 04:23:16 Test Item Value Reference Range Interpretation Comments TESTOSTERONE (test 531 NG/DL See_Comment H NOTE: TO ELDER code = 2830) TESTOSTERONE SAY SENSITIVITY IS 12 NG/DL. TO DETER MINE NORMAL VS. SUBN ORMAL TESTOSTERONE IN CHILDREN AND WO MEN, CONSIDER TESTIN G WITH ULTRASENSITIVE TESTOSTERONE. U NLESS OTHERWISE INDIC ATED, ALL TESTING PER [facility]MED [facility], [address] [place] [address] LABORATOR Y DIRECTOR: BRITTANY BUI M.D. [facility] NUMBER [id number] CAP ACCREDITATION N O. [id number] [Autom ated message] The sy stem which generated this result transmit malena reference range : <=55. The reference r luis was not used to int erpret this result as normal/abnormal .
--- NOTE | 2022-04-07 19:46 | RAD REPORT ---
EXAM DESCRIPTION: US - UPPER EXTREMITY VENOUS UNILATE - 04/07/2022 7:36 pm CLINICAL HISTORY: Right upper extremity pain COMPARISON: None. FINDINGS: The right internal jugular, subclavian, brachial, axillary, cephalic, basilic, radial and ulnar veins demonstrate phasic signal. The veins are generally compressible. Doppler demonstrates good flow IMPRESSION: No evidence of thrombus involving the right upper extremity
--- NOTE | 2022-04-07 19:55 | EDPHYS ---
Physician Documentation [facility] Name: Ana Luna Age: 21 yrs Sex: Female : 2000 Arrival Date: 04/07/2022 Time: 18:17 Bed 13 Private MD: ED Physician Cesar Burton HPI: 04/07 18:51 This 21 yrs old Female presents to ER via Unassigned with complaints of Arm Pain. kb 18:51 The patient or guardian complains of pain. The complaints affect the dorsal aspect of kb right forearm. Context: The problem was sustained at home, resulted from unknown cause. Onset: The symptoms/episode began/occurred this morning. Treatment prior to arrival includes: no previous treatment. Modifying factors: The symptoms are alleviated by nothing. the symptoms are aggravated by nothing. Associated signs and symptoms: Pertinent positives: pain. Severity of symptoms: At their worst the symptoms were moderate, in the emergency department the symptoms are unchanged. The patient has not experienced similar symptoms in the past. The patient has not recently seen a physician. pt states she woke up with pain to right forearm and is concerned she has a blood clot because she is on hormone therapy. 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 - Social history:: Smoking status: unknown. ROS: 18:51 Constitutional: Negative for fever, chills, and weight loss. kb 18:51 MS/extremity: Positive for pain, of the dorsal aspect of right forearm. 18:51 All other systems are negative. Exam: 18:51 Constitutional: This is a well developed, well nourished patient who is awake, alert, kb and in no acute distress. Head/Face: Normocephalic, atraumatic. ENT: Moist Mucous membranes Cardiovascular: Regular rate and rhythm with a normal S1 and S2. No gallops, murmurs, or rubs. No pulse deficits. Respiratory: Respirations even and unlabored. No increased work of breathing. Talking in full sentences Abdomen/GI: Soft, non-tender. No distention Skin: Warm, dry with normal turgor. Normal color. MS/ Extremity: Pulses equal, no cyanosis. Neurovascular intact. Full, normal range of motion. Neuro: Awake and alert, GCS 15, oriented to person, place, time, and situation. Moves all extremities. Normal gait. Psych: Awake, alert, with orientation to person, place and time. Behavior, mood, and affect are within normal limits. Vital Signs: 20:01 BP 142 / 84; Pulse 95; Resp 18; Pulse Ox 98% on R/A; em6 MDM: 18:20 Patient medically screened. kb 18:50 Data reviewed: vital signs, nurses notes. Data interpreted: Pulse oximetry: on room air kb is 100 %. Interpretation: normal. 19:50 Counseling: I had a detailed discussion with the patient and/or guardian regarding: the kb historical points, exam findings, and any diagnostic results supporting the discharge/admit diagnosis, radiology results, the need for outpatient follow up, a family practitioner, to return to the emergency department if symptoms worsen or persist or if there are any questions or concerns that arise at home. 04/07 18:55 Order name: UPPER EXTREMITY VENOUS UNILATE; Complete Time: 19:50 EDMS Administered Medications: No medications were administered Disposition: 19:11 Co-signature as Attending Physician, Cesar Burton DO I was immediately available on-site ms3 in the Emergency Department for consultation in the care of the patient. Disposition Summary: 04/07/22 19:54 Discharge Ordered Location: Home kb Condition: Stable kb Diagnosis - Pain in right forearm kb Followup: kb - With: Emergency Department - When: As needed - Reason: Worsening of condition Followup: kb - With: Private Physician - When: 2 - 3 days - Reason: Recheck today's complaints, Continuance of care, Re-evaluation by your physician Discharge Instructions: - Discharge Summary Sheet kb - Musculoskeletal Pain kb Forms: - Medication Reconciliation Form kb - Thank You Letter kb - Antibiotic Education kb - Prescription Opioid Use kb Prescriptions: - Ibuprofen 800 mg Oral Tablet - take 1 tablet by ORAL route every 8 hours As needed take with food; 30 tablet; kb Refills: 0, Product Selection Permitted Signatures: Dispatcher [employer] EDMS Kaylee Sarabia FNP-C FNP-Ckb Sims, Marcus, DO DO ms3 Deborah Ramos, RN RN em6 Corrections: (The following items were deleted from the chart) 18:55 18:26 Extremity Venous Uni [email or web address] ordered. EDMS EDMS
--- NOTE | 2022-04-07 19:55 | ER ---
Nurse's Notes [facility] Name: Ana Luna Age: 21 yrs Sex: Female : 2000 Arrival Date: 04/07/2022 Time: 18:17 Bed 13 Private MD: Diagnosis: Pain in right forearm Presentation: 04/07 19:02 Chief complaint: Patient states: " this morning I had some tingling and numbing in my em6 right arm and I though it could be a blood clot. I saw my PCP last week and they informed me I have high blood pressure and maybe that could be it too.". 19:11 Initial Sepsis Screen: Does the patient meet any 2 criteria? No. Patient's initial em6 sepsis screen is negative. Does the patient have a suspected source of infection? No. Patient's initial sepsis screen is negative. Risk Assessment: Do you want to hurt yourself or someone else? Patient reports no desire to harm self or others. Onset of symptoms was April 07, 2022. 19:11 Acuity: REID 3 em6 19:12 Coronavirus screen: Client denies travel out of the [place] in the last 14 days. Ebola em6 Screen: Patient negative for fever greater than or equal to 101.5 degrees Fahrenheit, and additional compatible Ebola Virus Disease symptoms. 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 - Social history:: Smoking status: unknown. Screenin:10 Abuse screen: Denies threats or abuse. Nutritional screening: No deficits noted. em6 Tuberculosis screening: No symptoms or risk factors identified. Fall Risk Total James Fall Scale indicates No Risk (0-24 pts). 19:12 [facility] ED Fall Risk Assessment (Adult) History of falling in the last 3 months, em6 including since admission No falls in past 3 months (0 pts) Confusion or Disorientation No (0 pts) Intoxicated or Sedated No (0 pts) Impaired Gait No (0 pts) Mobility Assist Device Used No (0 pt) Altered Elimination No (0 pt) Score/Fall Risk Level 0 - 2 = Low Risk Oriented to surroundings, Maintained a safe environment, Educated pt \\T\\ family on fall prevention, incl call for assistance when getting out of bed, Assessed \\T\\ reinforced patient's understanding of fall precautions, Provided non-skid footwear, Hourly rounding (assess needs \\T\\ fall precautionary measures) done, Used ambulatory aids as needed (educated on \\T\\ assisted with), Used gait belt as appropriate. Humpty Dumpty Scale Fall Assessment Tool (age< 18yrs) Fall Risk Score/ Level. Assessment: 19:09 General: Appears in no apparent distress. Behavior is cooperative. Pain: Complains of em6 pain in right arm and dorsal aspect of right forearm Pain does not radiate. Pain currently is 10 out of 10 on a pain scale. Quality of pain is described as tingling, throbbing, numb, Pain began 1 day ago. Neuro: Level of Consciousness is awake, alert, obeys commands, Oriented to person, place, time, situation. Cardiovascular: Capillary refill < 3 seconds Patient's skin is warm and dry. Respiratory: Airway is patent Respiratory effort is even, unlabored, Respiratory pattern is regular, symmetrical. GI: No signs and/or symptoms were reported involving the gastrointestinal system. : No signs and/or symptoms were reported regarding the genitourinary system. EENT: No signs and/or symptoms were reported regarding the EENT system. Derm: No signs and/or symptoms reported regarding the dermatologic system. Musculoskeletal: Circulation, motion, and sensation intact. Range of motion: intact in all extremities. 19:11 Reassessment: patient left to ultrasound with tech. em6 Vital Signs: 20:01 BP 142 / 84; Pulse 95; Resp 18; Pulse Ox 98% on R/A; em6 ED Course: 18:17 Patient arrived in ED. mr 18:18 Jenelle Olivas FNP-C is PHCP. snw 18:18 Cesar Burton DO is Attending Physician. snw 18:18 PHCP role handed off by Jenelle Olivas FNP-C kb 18:18 Kaylee Sarabia FNP-C is PHCP. kb 19:06 Deborah Ramos, BRITTANY is Primary Nurse. em6 19:11 Triage completed. em6 19:11 Arm band placed on. em6 19:12 Bed in low position. Call light in reach. Side rails up X 1. Pulse ox on. NIBP on. Warm em6 blanket given. 19:38 UPPER EXTREMITY VENOUS UNILATE In Process Unspecified. EDMS 20:01 No provider procedures requiring assistance completed. Patient did not have IV access em6 during this emergency room visit. Administered Medications: No medications were administered Medication: 20:02 VIS not applicable for this client. em6 Outcome: 19:54 Discharge ordered by . megan 20:02 Discharged to home ambulatory. em6 20:02 Condition: stable 20:02 Discharge instructions given to patient, Instructed on discharge instructions, follow up and referral plans. medication usage, Demonstrated understanding of instructions, follow-up care, medications, Prescriptions given X 1. 20:03 Patient left the ED. Signatures: Dispatcher [employer] EDOK Kaylee Sarabia, REKHA BETTSP-Jenelle Torrez FNP-C [employer] SEA[employer]OD CLERK-Jeremiew Avelina Henley Heather, RN RN Deborah Ramos RN RN em6
[2022-04-07 20:23] VITALS: BP 142/84; O2SAT 98
== END 2022-04-07 20:03 | disposition home or self-care (01) ==
LOC: ER 18:15
DX: M79.631 Pain in right forearm (principal)
CPT/HCPCS: 93971; 99283